=== PATIENT | female | born 2005 | race Caucasian/White ===

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

== ENCOUNTER 2023-02-13 04:37 | Emergency (ER) | payer OTHER ==
[2023-02-13 04:45] VITALS: BMI 39.5
[2023-02-13] MEDS ORDERED: SODIUM CHLORIDE 0.9% 500 ML INFUS.BAG IV ONE (04:54)
[2023-02-13 05:58] LABS: VENOUS BASE EXCESS -0.9 mmol/L (-2-2); VENOUS O2 SATURATION 94.4 % (70-80); VENOUS PH 7.393 (7.310-7.410)
[2023-02-13 06:19] LABS: CALCIUM 9.5 mg/dL (8.5-10.1)
[2023-02-13 06:20] LABS: ALBUMIN 3.7 g/dl (3.4-5.0)
[2023-02-13 06:22] LABS: CREATININE 0.6 mg/dL (0.55-1.3)
[2023-02-13 06:23] LABS: BILIRUBIN,TOTAL 0.3 mg/dL (0.2-1); TOT PROT 8.3 g/dl (6.4-8.2)
[2023-02-13 06:25] LABS: BASO % 0.3 % (0-2.0); EOS % 1.1 % (0-4.5); HEMATOCRIT 39.7 % (32.4-45.2); HEMOGLOBIN 13.2 GM/dL (10.7-15.3); LYMPH % 26.4 % (8-40); MCH 25.4 pg (25.7-33.7); MCHC 33.3 g/dl (32.0-36.0); MEAN CELL VOLUME 76.2 fl (80-96); MEAN PLT VOLUME 8.3 fl (7.5-11.1); MONO % 5.5 % (3.8-10.2); NEUT % 66.7 % (42.8-82.8); PLATELET COUNT 389 10^3/uL (134-434); RBC 5.21 M/mm3 (3.60-5.2); RDW 14.7 % (11.6-15.6); WHITE BLOOD COUNT 15.2 K/mm3 (4.0-10.0)
[2023-02-13 08:19] LABS: EPI CELLS 31 /uL (0-25.1); HYALINE CASTS 1 /uL (0-3.1); PH,URINE 5.5 (5.0-8.0); URINE APPEARANCE CLEAR; URINE BACTERIA 2770 /uL (0-1359); URINE BILIRUBIN NEGATIVE (NEGATIVE); URINE COLOR YELLOW; URINE GLUCOSE (UA) 3+ (NEGATIVE); URINE KETONE TRACE (NEGATIVE); URINE LEUK ESTERASE NEGATIVE (NEGATIVE); URINE NITRITE NEGATIVE (NEGATIVE); URINE PROTEIN 3+ (NEGATIVE); URINE UROBILINOGEN 0.2 mg/dL (0.2-1.0); URINE WBC 20 /uL (0-25.8)
[2023-02-13 08:37] LABS: URINE RBC 27.2 /uL (0-23.9)
[2023-02-13 08:44] VITALS: BP 141/94; PULSE 102; RESP 20; TEMP 98.9
== END 2023-02-13 09:40 | disposition home or self-care (01) ==
LOC: JER 04:37
DX: R73.9 Hyperglycemia, unspecified (principal); Z20.822 Contact with and (suspected) exposure to COVID-19
CPT/HCPCS: 0241U-QW; 36415; 80053; 80307; 81003; 82010; 82803; 82962; 84703; 85025; 87077; 87086; 99283-25